=== PATIENT | female | born 1975 | race Caucasian/White ===

== ENCOUNTER 2023-07-15 15:55 | Outpatient (CLI) | payer BC ==
[2023-07-15 17:19] LABS: #Eosinphils 0.1 10x3/uL (0.0-0.5); #Monocytes 0.6 10x3/uL (0.0-1.1); #Neutrophils 5.2 10x3/uL (1.5-8.4); %Basophils 0.5 % (0.0-2.0); %Lymphocytes 23.7 % (18.0-47.0); %Monocytes 7.9 % (0.0-10.0); %Neutrophils 66.6 % (40.0-75.0); Hematocrit 46.1 % (34.9-44.5); Hemoglobin 15.1 g/dL (12.0-15.5); Mean Corpuscular HGB CONC 32.8 g/dL (32.0-36.0); Mean Corpuscular Hemoglobin 29.3 pg (27.0-33.0); Mean Corpuscular Volume 89.3 fl (81.6-98.3); Mean Platelet Volume 9.8 fl (7.4-10.4); Platelet Count 361 10x3/uL (150-450); RBC Distribution Width 13.3 % (11.5-14.5); Red Blood Cell (RBC) Count 5.16 10x6/uL (3.90-5.03); White Blood Cell (WBC) Count 7.7 10x3/uL (3.5-10.5)
[2023-07-15 17:39] LABS: Anion Gap 18 mmol/L (10-20); BUN (Urea Nitrogen) 25 mg/dL (7.0-18.7); Calc. Creatinine Clearance 0 mL/min (70-130); Calcium 10.1 mg/dL (7.8-10.44); Carbon Dioxide 22 mmol/L (22-29); Chloride 102 mmol/L (98-107); Estimated GFR 102; Glucose 84 mg/dL (70-105); Potassium 3.9 mmol/L (3.5-5.1); Sodium 138 mmol/L (136-145)
== END 2023-07-15 15:56 | disposition home or self-care (01) ==
LOC: LABBT 15:55
PROVIDERS: ATTEND Surgery
DX: Z01.818 Encounter for other preprocedural examination (principal); M79.89 Other specified soft tissue disorders
CPT/HCPCS: 80048; 85025

== ENCOUNTER 2023-07-18 05:20 | Day surgery (SDC) | payer BC ==
[2023-07-15 16:18] VITALS: BMI 22.9
[2023-07-18] MEDS ORDERED: Lidocaine 1% PF 5 ML VIAL ONE (06:30)
[2023-07-18] MEDS ORDERED: Ondansetron PF 4 MG/2 ML Vial ONE ×2 (06:30→08:03)
[2023-07-18] MEDS ORDERED: Succinylcholine 200 MG/10 ml SYRINGE FS ONE (06:30)
[2023-07-18] MEDS ORDERED: PROPOFOL 200 MG/20 ML VIAL ONE (06:30)
[2023-07-18] MEDS ORDERED: diphenhydrAMINE 50 MG/ML VIAL ONE (06:30)
[2023-07-18] MEDS ORDERED: Bupivacaine 0.25% HCL 30 ML VIAL ONE (06:38)
[2023-07-18] MEDS ORDERED: EPINEPHrine 1 MG/ML AMP ONE (06:38)
[2023-07-18] MEDS ORDERED: Scopolamine 1.5 mg/72 hour Patch ONE (06:50)
[2023-07-18] MEDS ORDERED: Famotidine/PF 20 mg/2ml Vial ONE (06:50)
[2023-07-18] MEDS ORDERED: Midazolam HCl 2 mg/2 ml Vial ONE (06:50)
[2023-07-18] MEDS ORDERED: fentaNYL PF 100 MCG/2 ML SYRINGE ONE (07:06)
[2023-07-18] MEDS ORDERED: SUGAMMADEX SODIUM 200 MG/2 ML VIAL ONE (07:07)
[2023-07-18] MEDS ORDERED: Lidocaine 2% 6 ML (Jelly) SYR ONE (07:10)
[2023-07-18] MEDS ORDERED: Sodium Chloride 0.9% 100 ML ONE (07:13)
[2023-07-18] MEDS ORDERED: CEFAZOLIN 2 GM VIAL ONE (07:13)
[2023-07-18] MEDS ORDERED: Promethazine HCl 25 MG/ML VIAL ONE (08:14)
== END 2023-07-18 09:10 | disposition home or self-care (01) ==
LOC: SDC 05:20
PROVIDERS: ATTEND Surgery
PROC: 0JB40ZZ Excision of Right Neck Subcutaneous Tissue and Fascia, Open Approach (ICD-10-PCS; principal; 2023-07-18)
DX: D17.0 Benign lipomatous neoplasm of skin and subcutaneous tissue of head, face and neck (principal); E11.9 Type 2 diabetes mellitus without complications; E03.9 Hypothyroidism, unspecified; E07.9 Disorder of thyroid, unspecified; G43.909 Migraine, unspecified, not intractable, without status migrainosus; F32.A Depression, unspecified; Z79.890 Hormone replacement therapy; Z79.84 Long term (current) use of oral hypoglycemic drugs; Z88.1 Allergy status to other antibiotic agents; Z88.8 Allergy status to other drugs, medicaments and biological substances; Z91.018 Allergy to other foods; Z91.02 Food additives allergy status; Z90.710 Acquired absence of both cervix and uterus; Z90.49 Acquired absence of other specified parts of digestive tract; Z96.698 Presence of other orthopedic joint implants; Z79.899 Other long term (current) drug therapy
CPT/HCPCS: 36416; 88304; J0171; J1200; J2250; J2405; J2550; J2704; J3490; S0020; S0028